=== PATIENT | male | born 1965 | race Caucasian/White ===

== ENCOUNTER 2018-09-03 19:36 | Emergency (ER) | payer BC ==
[~2018-09-03] VITALS: Ht 177.8 cm; Wt 90.0 kg
[~2018-09-03 19:36] MED LIST: AMOXICILLIN500 MG PO; KEFLEX500 MG PO; NAPROSYN500 MG PO; NO HOME MEDS
[2018-09-03] MEDS ORDERED: KEFLEX500 M1 PO (20:56)
[2018-09-03 21:20] VITALS: BP 122/78
== END 2018-09-03 21:20 | disposition home or self-care (01) | DRG 603 ==
LOC: ED 19:36
PROC: 0H96XZZ Drainage of Back Skin, External Approach (ICD-10-PCS; principal; 2018-09-03)
DX: L03.312 Cellulitis of back [any part except buttock and flank] (principal); D17.1 Benign lipomatous neoplasm of skin and subcutaneous tissue of trunk